=== PATIENT | female | born 1995 | race Two or more races ===

== ENCOUNTER 2024-10-21 16:54 | Outpatient (CLI) | payer OTHER ==
[~2024-10-21] VITALS: Ht 165.1 cm; Wt 67.6 kg
[2024-10-21 16:04] VITALS: BP 111/74
[2024-10-21] MEDS ORDERED: RINGERS SOLUTION,LACTATED 1,000 ML IV SCH (17:00)
[2024-10-21] MEDS ORDERED: PRENATAL CAPLE1 EAC1 PO (17:20)
[2024-10-21 18:03] LABS: HEMATOCRIT 35.5 % (36.0-45.00); MEAN CELL VOLUME 91.3 fL (80.00-100.00); MEAN CORPUSCULAR HGB CONC 33.9 g/dl (32.0-36.0); PLATELET COUNT 233 K/uL (150-450); RED BLOOD COUNT 3.89 M/uL (4.00-6.00); RED CELL DISTRIBUTION WIDTH 18.1 % (11.5-14.5)
[2024-10-21 18:04] LABS: PH,URINE 7.5 (5.0-8.0); URINE APPEARANCE Clear; URINE BILIRRUBIN Negative (NEGATIVE); URINE BLOOD Negative; URINE COLOR Yellow; URINE GLUCOSE Negative (NEGATIVE); URINE KETONE Negative (NEGATIVE); URINE LEUKOCYTE Negative; URINE NITRATE Negative; URINE PROTEIN 30 (NEGATIVE)
[2024-10-21 18:07] LABS: URINE BACTERIA 971.7 uL (0.0-1933); URINE EPITHELIAL CELLS 40.5 uL (0.0-38.8); URINE RBC 15.6 uL (0.0-20.8); URINE WBC 17.8 uL (0.0-23.2)
[2024-10-21 18:23] LABS: URINE CAST 0.29 uL (0.0-1.40)
[2024-10-21 18:25] LABS: INR < 0.93; PARTIAL THROMBOPLASTIN TIME 23.3 SECONDS (22.0-34.0); PROTHROMBIN TIME 10.1 SECONDS (9.0-11.5)
[2024-10-21 18:38] LABS: ALBUMIN 2.6 gm/dL (3.4-5.0); BILIRUBIN TOTAL 0.45 mg/dL (0.3-1.2); CALCIUM 9.1 mg/dL (8.5-10.1); CREATININE SERUM 0.53 mg/dL (0.55-1.02); GFR 136.38; GLOBULINA 3.6 G/DL (2.4-3.5); POTASSIUM 4.38 mEq/L (3.5-5.1); TOTAL PROTEIN 6.2 gm/dL (6.4-8.2)
[2024-10-21] MEDS ORDERED: URSODIOL 300 MG CAPSULE PO SCH (19:15)
[2024-10-21 19:29] VITALS: BP 96/63
[2024-10-21] MEDS ORDERED: DIPHENHYDRAMINE HCL 50 MG/ML VIAL 1ML IV PRN (19:30)
[2024-10-21 23:14] VITALS: BP 99/65
[2024-10-22 02:36] VITALS: BP 99/63
[2024-10-22 07:08] VITALS: BP 96/61
[2024-10-22 10:36] LABS: ALBUMIN 2.3 gm/dL (3.4-5.0); BILIRUBIN TOTAL 0.52 mg/dL (0.3-1.2); CALCIUM 8.9 mg/dL (8.5-10.1); CREATININE SERUM 0.49 mg/dL (0.55-1.02); GFR 149.31; GLOBULINA 3.6 G/DL (2.4-3.5); POTASSIUM 3.92 mEq/L (3.5-5.1); TOTAL PROTEIN 5.9 gm/dL (6.4-8.2)
[2024-10-22 10:48] VITALS: BP 105/68
[2024-10-22 16:03] VITALS: BP 112/75
[2024-10-22 17:22] LABS: INR 0.94; PARTIAL THROMBOPLASTIN TIME 23.2 SECONDS (22.0-34.0); PROTHROMBIN TIME 10.3 SECONDS (9.0-11.5)
== END 2024-10-22 18:54 | disposition home or self-care (01) ==
LOC: OBS/DEL 16:54 → LDR 10-22 10:56 → OBS/DEL 10-22 18:54
PROVIDERS: ATTEND Obstetrics & Gynecology Gynecology
DX: O26.893 Other specified pregnancy related conditions, third trimester (principal); O26.643 Intrahepatic cholestasis of pregnancy, third trimester; Z3A.33 33 weeks gestation of pregnancy

== ENCOUNTER 2024-10-25 12:40 | Outpatient (CLI) | payer OTHER ==
[~2024-10-25 12:40] MED LIST: PRENATAL CAPLE1 EAC1 PO
== END 2024-10-25 13:45 | disposition home or self-care (01) ==
LOC: NST 12:40
PROVIDERS: ATTEND Obstetrics & Gynecology Gynecology
DX: Z34.83 Encounter for supervision of other normal pregnancy, third trimester (principal)

== ENCOUNTER 2024-10-30 14:38 | Outpatient (CLI) | payer OTHER | END 2024-10-30 15:54 | disposition home or self-care (01) | LOC: NST 14:38 | PROVIDERS: ATTEND Obstetrics & Gynecology Gynecology | DX: Z34.83 Encounter for supervision of other normal pregnancy, third trimester (principal) ==

== ENCOUNTER 2024-11-06 12:08 | Outpatient (CLI) | payer OTHER | END 2024-11-06 14:56 | disposition home or self-care (01) | LOC: NST 12:08 | PROVIDERS: ATTEND Obstetrics & Gynecology Gynecology | DX: Z3A.35 35 weeks gestation of pregnancy (principal) ==

== ENCOUNTER 2024-11-13 15:47 | Inpatient (IN) | payer OTHER ==
[~2024-11-13] VITALS: Ht 165.1 cm; Wt 3.2 kg
[2024-11-14 17:00] VITALS: BP 118/76
[2024-11-14] MEDS ORDERED: URSODIOL200 MG PO (17:01)
[2024-11-14 17:26] LABS: HEMOGLOBIN 12.7 g/dL (12.0-15.00); MEAN CELL VOLUME 89.1 fL (80.00-100.00); MEAN CORPUSCULAR HEMOGLOBIN 29.7 pg (27.00-32.0); MEAN CORPUSCULAR HGB CONC 33.3 g/dl (32.0-36.0); PLATELET COUNT 225 K/uL (150-450); RED BLOOD COUNT 4.27 M/uL (4.00-6.00)
[2024-11-14 17:43] LABS: INR < 0.93; PARTIAL THROMBOPLASTIN TIME 24.3 SECONDS (22.0-34.0); PROTHROMBIN TIME 10.2 SECONDS (9.0-11.5)
[2024-11-14] MEDS ORDERED: MISOPROSTOL 25 MCG TABLET VAG ONE (17:45)
[2024-11-14] MEDS ORDERED: RINGERS SOLUTION,LACTATED 1,000 ML IV SCH (17:45)
[2024-11-14 17:47] LABS: ALBUMIN 2.4 gm/dL (3.4-5.0); BILIRUBIN TOTAL 0.26 mg/dL (0.3-1.2); CALCIUM 8.6 mg/dL (8.5-10.1); CREATININE SERUM 0.66 mg/dL (0.55-1.02); GFR 105.88; GLOBULINA 3.8 G/DL (2.4-3.5); POTASSIUM 3.97 mEq/L (3.5-5.1); TOTAL PROTEIN 6.2 gm/dL (6.4-8.2)
[2024-11-14] MEDS ORDERED: MORPHINE SULFATE 4 MG/ML CARTRIDGE IV PRN (18:45)
[2024-11-14 19:26] VITALS: BP 117/73
[2024-11-14 23:50] VITALS: BP 128/82
[2024-11-15 03:46] VITALS: BP 110/73; O2SAT 100
[2024-11-15] MEDS ORDERED: OXYTOCIN 500 ML IV ONE ×2 (07:30→10:30)
[2024-11-15 07:47] VITALS: BP 117/69
[2024-11-15 12:15] VITALS: BP 119/74
[2024-11-15 15:53] VITALS: BP 129/73
[2024-11-15] MEDS ORDERED: RINGERS SOLUTION,LACTATED 1,000 ML IV SCH (16:45)
[2024-11-15] MEDS ORDERED: MORPHINE SULFATE 4 MG/ML CARTRIDGE IV PRN (16:45)
[2024-11-15] MEDS ORDERED: OXYTOCIN 1,000 ML IV ONE (16:45)
[2024-11-15] MEDS ORDERED: OXYTOCIN 10 UNITS/ML VIAL IV ONE (17:00)
[2024-11-15] MEDS ORDERED: GABAPENTIN 300 MG CAPSULE PO SCH (17:00)
[2024-11-15] MEDS ORDERED: ERYTHROMYCIN BASE OPHT 1GM EACH TUBE OP ONE (17:00)
[2024-11-15] MEDS ORDERED: SIMETHICONE 125 MG CAPSULE PO SCH (17:00)
[2024-11-15] MEDS ORDERED: ONDANSETRON HCL 2 MG/ML VIAL IV SCH (18:00)
[2024-11-15] MEDS ORDERED: KETOROLAC TROMETHAMINE 30 MG VIAL IV SCH (18:00)
[2024-11-15] MEDS ORDERED: ACETAMINOPHEN 500 MG GEL..CAP PO SCH (18:00)
[2024-11-15 22:10] VITALS: BP 123/77
[2024-11-16 00:18] VITALS: BP 96/77
[2024-11-16 07:20] VITALS: BP 109/76
[2024-11-16 07:38] LABS: HEMATOCRIT 34.9 % (36.0-45.00); HEMOGLOBIN 11.7 g/dL (12.0-15.00); MEAN CELL VOLUME 88.1 fL (80.00-100.00); MEAN CORPUSCULAR HEMOGLOBIN 29.5 pg (27.00-32.0); MEAN CORPUSCULAR HGB CONC 33.5 g/dl (32.0-36.0); PLATELET COUNT 212 K/uL (150-450); RED BLOOD COUNT 3.96 M/uL (4.00-6.00); RED CELL DISTRIBUTION WIDTH 17.1 % (11.5-14.5)
[2024-11-16] MEDS ORDERED: KETOROLAC TROMETHAMINE 10 MG TABLET PO SCH (08:00)
[2024-11-16] MEDS ORDERED: OxyCODONE HCL 5 MG TABLET (ROXICODONE) PO PRN (08:00)
[2024-11-16 13:05] VITALS: BP 96/62
[2024-11-16 16:00] VITALS: BP 91/64
[2024-11-17 02:56] VITALS: BP 109/67
[2024-11-17 08:00] VITALS: BP 100/69
== END 2024-11-17 13:32 | disposition home or self-care (01) | DRG 786 ==
LOC: LDR 11-14 15:40 → OB/GYN 11-15 17:18 → SURH 12-06 15:00 → OB/GYN 12-06 15:23
PROVIDERS: Obstetrics & Gynecology; ADMIT Obstetrics & Gynecology Gynecology; ATTEND Obstetrics & Gynecology Gynecology
PROC: 4A1HXCZ Monitoring of Products of Conception, Cardiac Rate, External Approach (ICD-10-PCS; 2024-11-14)
PROC: 3E0P7VZ Introduction of Hormone into Female Reproductive, Via Natural or Artificial Opening (ICD-10-PCS; 2024-11-14)
PROC: 3E033VJ Introduction of Other Hormone into Peripheral Vein, Percutaneous Approach (ICD-10-PCS; 2024-11-15)
PROC: 10D00Z1 Extraction of Products of Conception, Low, Open Approach (ICD-10-PCS; principal; 2024-11-15 15:15)
DX: O61.0 Failed medical induction of labor (principal); K83.1 Obstruction of bile duct; O26.643 Intrahepatic cholestasis of pregnancy, third trimester; Z3A.37 37 weeks gestation of pregnancy; Z37.0 Single live birth